=== PATIENT | female | born 1950 | race Two or more races ===

== ENCOUNTER 2024-10-25 18:00 | Inpatient (IN) | payer MEDICARE ==
[~2024-10-25] VITALS: Ht 160 cm; Wt 88.1 kg
[2024-10-25] MEDS ORDERED: INSU100V7 SQ (23:01)
[2024-10-25] MEDS ORDERED: METO100T14 PO (23:01)
[2024-10-25] MEDS ORDERED: METF-442 PO (23:01)
[2024-10-25] MEDS ORDERED: MAGNESIUM HYDROXIDE 30 ML UDC PO PRN (23:30)
[2024-10-25] MEDS ORDERED: ONDANSETRON HCL/PF 4 MG/2 ML VIAL IVP PRN (23:30)
[2024-10-25] MEDS ORDERED: MAG HYDROX/AL HYDROX/SIMETH 30 ML UDC PO PRN (23:30)
[2024-10-26] MEDS: HYDROCODONE/APAP 5/325MG TABLET PO PRN (06:49)
[2024-10-26 07:27] LABS: INR 0.97 (0.91-1.10)
[2024-10-26 07:50] LABS: PLATELET COUNT (AUTO) 258 K/uL (150-450); RED BLOOD CELL COUNT(AUTO) 4.08 MIL/uL (4.0-5.2); RED CELL DISTRIBUTION WIDTH 13.3 % (11.5-15.0); WHITE BLOOD COUNT (AUTO) 8.1 K/uL (4.3-11.0)
[2024-10-26 08:00] VITALS: BP 121/63; TEMP 98.2; O2SAT 95
[2024-10-26 08:07] LABS: ASPARTATE AMINOTRANSFERASE 13.0 U/L (15-37); CALCIUM, SERUM 8.7 mg/dL (8.5-10.1); CREATININE 0.7 mg/dL (0.6-1.3); PHOSPHORUS 5.1 mg/dL (2.5-4.9); SODIUM SERUM 140.0 mmol/L (136-145); TOTAL PROTEIN, SERUM 6.9 g/dL (6.4-8.2); UREA NITROGEN, BLOOD 25.0 mg/dL (7-18)
[2024-10-26 08:11] LABS: LDL 133.0 mg/dL (0-99)
[2024-10-26] MEDS: PANTOPRAZOLE 40 MG TABLET.DR PO SCH (08:19)
[2024-10-26] MEDS: METOPROLOL TARTRATE 50 MG TABLET PO SCH (08:20)
[2024-10-26] MEDS: METFORMIN 500 MG TABLET PO SCH (09:21)
[2024-10-26] MEDS: ATORVASTATIN 10 MG TABLET PO SCH (09:30)
[2024-10-26] MEDS ORDERED: DEXTROSE 50%-WATER 50 ML DISP.SYRIN IV PRN (10:00)
[2024-10-26 10:53] LABS: LDL 131.0 mg/dL (0-99)
[2024-10-26] MEDS: BLOOD SUGAR DIAGNOSTIC 1 EACH STRIP VI SCH (11:33)
[2024-10-26 16:00] VITALS: BP 111/55; TEMP 98.4; O2SAT 95
[2024-10-26] MEDS: MORPHINE SULFATE INJ 2 MG/ML DISP.SYRIN IV PRN (18:18)
[2024-10-26 20:00] VITALS: BP 123/60; TEMP 98.2; O2SAT 98
[2024-10-26] MEDS: INSULIN GLARGINE, 100 UNIT/ML CARTRIDGE SQ SCH (21:04)
[2024-10-26] MEDS: IV D5/0.45 NACL 1,000 ML IV PRN (21:05)
[2024-10-26] MEDS: *INSULIN REGULAR(HUMULIN R)HUM 100 UNIT/ML VIAL SQ PRN (21:10)
[2024-10-27] VITALS (9 sets, daily range): BP systolic 95–130; BP diastolic 48–71; TEMP 97.7–98.2; O2SAT 94–99
[2024-10-27 00:59] LABS: APPEARANCE,URINE CLOUDY (CLEAR); BLOOD, URINE NEGATIVE Ery/uL (NEGATIVE); LEUKOCYTE ESTERASE ,URINE NEGATIVE (NEGATIVE); NITRITE, URINE NEGATIVE (NEGATIVE); UGLUCOSE NEGATIVE (NEGATIVE)
[2024-10-27 01:08] LABS: ADD URINE CULTURE NO; SQUAMOUS EPITHELIAL CELL,UR None Seen /HPF (None Seen); URINE AMORPHOUS URATE Moderate /HPF (None Seen)
[2024-10-27] MEDS: INSULIN REGULAR, HUMAN 100 UNIT/ML 3 ML VIAL SQ PRN (06:32)
[2024-10-27] MEDS ORDERED: FENTANYL PF 100MCG/2ML AMPUL ONE (06:48)
[2024-10-27] MEDS ORDERED: MIDAZOLAM HCL 2 MG/2ML VIAL ONE (06:48)
[2024-10-27] MEDS ORDERED: BUPIVACAINE 0.5 % PF 150 MG/30 ML VIAL ONE (06:59)
[2024-10-27] MEDS ORDERED: TRANEXAMIC ACID 1,000 MG/10 ML VIAL ONE ×2 (07:37→07:54)
[2024-10-27] MEDS ORDERED: HYDROMORPHONE 1 MG/1 ML DISP.SYRIN IV PRN (09:00)
[2024-10-27 12:02] LABS: IRON, SERUM 25 ug/dl (50-175)
[2024-10-27] MEDS: ANCEF 1 GM/50 ML D5W IV SCH (14:38)
[2024-10-28 08:42] VITALS: BP 103/56; TEMP 98.1; O2SAT 94
[2024-10-28] MEDS: ACETAMINOPHEN 325 MG TABLET PO PRN (15:08)
[2024-10-28 16:07] VITALS: TEMP 100.4
[2024-10-28 16:48] VITALS: BP 124/56
== END 2024-10-28 18:36 | DRG 481 ==
LOC: MED 22:25
PROVIDERS: ADMIT Nurse Practitioner Family; ATTEND Internal Medicine
PROC: 0QS706Z Reposition Left Upper Femur with Intramedullary Internal Fixation Device, Open Approach (ICD-10-PCS; principal; 2024-10-27 07:00)
DX: S72.142A Displaced intertrochanteric fracture of left femur, initial encounter for closed fracture (principal); D68.59 Other primary thrombophilia; W18.30XA Fall on same level, unspecified, initial encounter; E11.9 Type 2 diabetes mellitus without complications; I10 Essential (primary) hypertension; E78.5 Hyperlipidemia, unspecified; Y92.009 Unspecified place in unspecified non-institutional (private) residence as the place of occurrence of the external cause; M17.12 Unilateral primary osteoarthritis, left knee; M16.12 Unilateral primary osteoarthritis, left hip; Z79.899 Other long term (current) drug therapy; Z79.84 Long term (current) use of oral hypoglycemic drugs; Z79.4 Long term (current) use of insulin; E66.9 Obesity, unspecified; Z68.34 Body mass index [BMI] 34.0-34.9, adult
CPT/HCPCS: 36415; 73020; 73502; 73552; 73700-TC; 80048-TC; 80061-TC; 80076-TC; 81001; 82728-TC; 82962-TC; 83540-TC; 83735-TC; 84100-TC; 84439-TC; 84443-TC; 85025-TC; 85027-TC; 85610-TC; 86850-TC; 87081-TC; 93307-TC; 97112-TC; 97116-TC; 97530-TC; A4217; A4223; A6209; A6223; A6253; C1713; G0378; J0690; J1100; J1171; J1815; J2250; J2270; J2405; J2704; J3010; J3490; J7030; J7060